=== PATIENT | male | born 1995 | race Caucasian/White ===

== ENCOUNTER 2016-11-29 18:25 | Emergency (ER) | payer BC, OTHER ==
[~2016-11-29] VITALS: Ht 182.9 cm; Wt 86.2 kg
[2016-11-29] MEDS ORDERED: PRD20T (18:43)
[2016-11-29] MEDS ORDERED: FAMO-119 PO (18:44)
[2016-11-29] MEDS ORDERED: diphenhydrAMINE 50 MG/ML INJ (BENADRYL) IV STA (18:53)
[2016-11-29] MEDS ORDERED: methylPREDNISolone 125 MG (Solu-MEDROL) VIAL IV STA (18:53)
[2016-11-29] MEDS ORDERED: FAMOTIDINE 20MG/2ML IV (PEPCID) IV STA (18:53)
--- NOTE | 2016-11-29 19:16 | ED Integumentary General ---
General Chief Complaint: Allergic Reaction Stated Complaint: RASH Nursing Triage Note: AMBULATED TO ROOM 03 WITH COMPLAINTS OF A RASH STARTING YESTERDAY. STATES HE WENT TO URGENT CARE WAS GIVEN A STEROID SHOT AND STARTED ON A RX OF STEROIDS AND PEPCID. PT HAS HAD PREDNISONE 60MG TODAY ALONG WITH BENADRYL 25 MG AND PEPCID 20 MG WITHIN THE LAST HOUR. COMPLAINS OF ITCHING ET NO SOA. Source: patient History of Present Illness Time seen by provider: 18:40 Initial Comments PT C/O VERY ITCHY RASH THAT BEGAN YESTERDAY AT 12:30 PM SHORTLY AFTER EATING [employer] FOOD AT [place] NO NEW FOODS, MEDICATIONS OR PRODUCTS NO HISTORY OF SIMILAR NO DIFFICULTY BREATHING OR SWALLOWING, AND NO WHEEZING NO SWELLING ANYWHERE WAS SEEN AT [facility] YESTERDAY AND WAS GIVEN A STEROID SHOT , BENADRYL AND PEPCID PILLS AND SYMPTOMS ALMOST COMPLETELY WENT AWAY. WAS GIVEN RX FOR PREDNISONE TAPER AND TOOK FIRST DOSE THIS AM OF 60 MG, TOOK 20 MG OF PEPCID THIS AM AND AT 1715, AND BENADRYL 50 MG TOTAL TODAY--25 MG THIS AM AND 25 MG AT 1715 THEN SYMPTOMS RETURNED TODAY AROUND 1400, BUT ARE NOT QUITE BAD TODAY THEY WERE YESTERDAY. PCP: NONE Allergies and Home Medications Allergies Coded Allergies: No Known Drug Allergies (Unverified , 11/29/16) Home Medications Famotidine 20 Mg Tablet, 20 MG PO DAILY, (Reported) Prednisone 20 Mg Tab, #12 (Reported) Constitutional: no symptoms reported EENTM: no symptoms reported Respiratory: no symptoms reported Cardiovascular: no symptoms reported Gastrointestinal: no symptoms reported Genitourinary: no symptoms reported Musculoskeletal: no symptoms reported Skin: see HPI, pruritus, rash Psychiatric/Neurological: No Symptoms Reported Endocrine: No Symptoms Reported Hematologic/Lymphatic: No Symptoms Reported Past Tfparfb-Qtgqio-Joegsm Hx Patient Social History Alcohol Use: Denies Use Recreational Drug Use: No Smoking Status: Never a Smoker Recent Foreign Travel: No Contact w/Someone Who Travel: No Recent Infectious Disease Expo: No Recent Hopitalizations: No Surgeries HX Surgeries: No Respiratory Hx Respiratory Disorders: No Cardiovascular Hx Cardiac Disorders: No Neurological Hx Neurological Disorders: No Reproductive System Hx Reproductive Disorders: No Genitourinary Hx Genitourinary Disorders: No Gastrointestinal Hx Gastrointestinal Disorders: No Musculoskeletal Hx Musculoskeletal Disorders: No Endocrine Hx Endocrine Disorders: No HEENT HX ENT Disorders: No Cancer Hx Cancer: No Psychosocial Hx Psychiatric Problems: No Integumentary HX Skin/Integumentary Disorder: No Blood Transfusions Hx Blood Disorders: No Physical Exam Vital Signs Vital Sign - Last 12Hours 11/29/16 18:38 Temp 98.0 Pulse 59 Resp 16 B/P (MAP) 123/81 Pulse Ox 97 Capillary Refill : Less Than 3 Seconds General Appearance: WD/WN, no apparent distress HEENT: PERRL/EOMI, normal ENT inspection, TMs normal, pharynx normal Neck: non-tender, full range of motion, supple, normal inspection Cardiovascular: regular rate, rhythm, no murmur Respiratory: normal breath sounds, no respiratory distress, no accessory muscle use Gastrointestinal: normal bowel sounds, non tender, soft Back: normal inspection Extremities: normal inspection, no pedal edema Neurologic/Psychiatric: 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 ) Progress/Results/Core Measures Results/Orders My Orders Orders - SCOTTIE TRUJILLO DO Saline Lock/Iv-Start (11/29/16 18:53) Famotidine Injection (Pepcid Injection) (11/29/16 18:53) Diphenhydramine Injection (Benadryl Inje (11/29/16 18:53) Methylprednisolone Sod Succ (Solu-Medrol (11/29/16 18:53) Diphenhydramine Injection (Benadryl Inje (11/29/16 19:45) Methylprednisolone Sod Succ (Solu-Medrol (11/29/16 19:45) Famotidine Injection (Pepcid Injection) (11/29/16 19:45) Medications Given in ED Current Medications Medications Dose Ordered Sig/Lexie Route Start Time Stop Time Status Last Admin Dose Admin Diphenhydramine HCl 50 mg ONCE ONCE IVP 11/29/16 19:45 11/29/16 19:46 DC 11/29/16 19:57 50 MG Famotidine 40 mg ONCE ONCE IVP 11/29/16 19:45 11/29/16 19:46 DC 4/18/17 19:57 40 MG Methylprednisolone Sodium Succinate 125 mg ONCE ONCE IVP 11/29/16 19:45 11/29/16 19:46 DC 11/29/16 19:57 125 MG Vital Signs/I&O Vital Sign - Last 12Hours 11/29/16 11/29/16 18:38 20:25 Temp 98.0 Pulse 59 60 Resp 16 16 B/P (MAP) 123/81 Pulse Ox 97 97 Blood Pressure Mean: 95 Progress Note : Progress Note SYMPTOMS RESOLVED WITH MEDICATIONS, HIVES ALMOST COMPLETELY GONE AND NO LONGER ITCHING. Departure Impression Impression: Primary Impression: HIVES OF UNDETERMINED ETIOLOGY Additional Impression: SUSPECTED FOOD ALLERGY Disposition: HOME, SELF-CARE Condition: Improved Departure-Patient Inst. Referrals: NO,LOCAL PHYSICIAN (PCP/Family) Primary Care Physician Patient Instructions: Hives (DC), Food Allergy Add. Discharge Instructions: CONTINUE PREDNISONE PRESCRIBED TAKE PEPCID 40 MG TWICE A DAY NEEDE FOR RASH AND ITCHING TAKE BENADRYL 50 MG EVERY 4 HOURS NEEDED FOR RASH AND ITCHING RETURN TO ER IF SYMPTOMS WORSEN, OR IF NO IMPROVEMENT IN 1-2 DAYS LOTS OF WATER, KEEP FOOD DIARY OF EVERYTHING YOU INGESTED PRIOR TO ONSET OF RASH All discharge instructions reviewed with patient and/or family. Voiced understanding. SCOTTIE TRUJILLO DO Nov 29, 2016 19:16
[2016-11-29] MEDS ORDERED: diphenhydrAMINE 50 MG/ML INJ (BENADRYL) IVP ONE (19:45)
[2016-11-29] MEDS ORDERED: FAMOTIDINE 20MG/2ML IV (PEPCID) IVP ONE (19:45)
[2016-11-29] MEDS ORDERED: methylPREDNISolone 125 MG (Solu-MEDROL) VIAL IVP ONE (19:45)
[2016-11-29 20:25] VITALS: BP 120/78
== END 2016-11-29 20:25 | disposition home or self-care (01) ==
LOC: EDUNIT# 18:25 → ER 18:28
DX: L50.0 Allergic urticaria (principal)
CPT/HCPCS: 96374; 96375; 96376